=== PATIENT | female | born 1975 | race African-American/Black ===

== ENCOUNTER → 2016-11-29 | Outpatient (CLI) | payer OTHER ==
[~2016-11-29] MED LIST: ALBUTEROL17 GM INH; AMARYL2 MG PO; AZITHROMYCIN250 MG PO; GLIPIZIDE10 MG PO; K-DUR20 ME1 PO; LASIX PO; LEVEMIR FL100 UNIT/1 SUBQ; LISINOPRIL PO; LISINOPRIL-HCTZ1 T14 PO; LO-DOSE ASPIRIN81 M1 PO; LORTAB 10-3251 EACH PO; NON-ASPIRIN325 MG PO; VIBRAMYCIN100 M1 PO; ZESTORETIC 20-1 EAC1 PO; ZYRTEC10 M2 PO
--- NOTE | ~2016-11-29 | CR7 ---
[facility] A Service of [facility] & [facility] RADIOLOGY TEXT RESULTS PATIENT: JONATHON FOSTER LOCATION: [facility] : 77 UNIT #: [id number] AGE: [address]: KRISTOFER AGRAWAL SEX: F ORDER DR: [id number] [facility] [address] [place], [place] [address] [id number] O MR#: [id number] Acc #: [id number] NAME: JONATHON FOSTER : 1975 SEX: F STUDY DATE/TIME: 11/29/2016 11:47 UNIT: [facility] ROOM: STUDY DESCRIPTION: CR Abdomen Single AP View Attending Physician: Everton Emery Referring Physician: Everton Emery Ordering Physician: Everton Emery Primary Care Physician: Cari Meza M.D. MEDICAL IMAGING REPORT This report is preliminary unless electronic signature is present EXAM AP abdomen 11/29/2016 HISTORY 41-year-old female with abdominal pain and diarrhea for 1 week. Diabetes. Hypertension. COMPARISON None. FINDINGS Nonspecific but non-obstructive appearing bowel gas pattern. No organomegaly or abnormal soft tissue calcification is seen. Osseous structures appear within normal limits. IMPRESSION Normal AP abdomen. Dictated by... Anna Marie Rutherford M.D. THIS IS AN ELECTRONICALLY VERIFIED REPORT Anna Marie Rutherford M.D. at 12/02/2016 8:30 AM KIANA/booker TD: 11/29/2016 17:53 JOB #: [id number] MEDICAL IMAGING REPORT Page 1 of 1 COPY
== END | disposition home or self-care (01) ==
LOC: CRAD 11:34
DX: R10.9 Unspecified abdominal pain (principal)
CPT/HCPCS: 74000